=== PATIENT | male | born 1995 | race Caucasian/White ===

== ENCOUNTER 2018-07-08 01:46 | Emergency (ER) | payer OTHER ==
[~2018-07-08] VITALS: Wt 97.1 kg
[~2018-07-08 01:46] MED LIST: ACET500C5 PO; GUAI5SYR2 PO; IBUP-1561 PO
[2018-07-08] MEDS ORDERED: IBUPROFEN 800 MG TAB PO ONE (05:00)
[2018-07-08] MEDS ORDERED: NAPR-985 PO (06:00)
[2018-07-08 06:16] VITALS: BP 118/67; PULSE 61; RESP 18
--- NOTE | 2018-07-13 08:52 | ERD ---
ER Documentation Chief Complaint Chief Complaint L ANKLE PAIN S/P ROLLING ANKLE HPI 22-year-old male presenting with left ankle pain. He has some mild numbness and he twisted his ankle earlier today. Has not taken medications for symptoms. Pain is worse with ambulation. Denies any other medical problems. NKDA. Surgical history is appendectomy. Social history denies ROS All systems reviewed and are negative except as per history of present illness. Medications Home Meds Active Scripts Naproxen* (Naprosyn*) 500 Mg Tablet, 500 MG PO BID PRN for PAIN AND/OR INFLAMMATION, #30 TAB Prov:TOM VANN PA-C 07/08/18 Guaifenesin-Dextromethorphan* (Robitussin* DM) 100MG/10MG/5ML Syrup, 5 ML PO Q6H PRN for COUGH for 6 Days, #120 ML 0 Refills Prov:BISHOP NEWTON PA-C 10/02/15 Ibuprofen* (Motrin*) 400 Mg Tab, 400 MG PO Q6 for 7 Days, #30 TAB 0 Refills Prov:BISHOP NEWTON PA-C 10/02/15 Acetaminophen* (Tylophen*) 500 Mg Capsule, 1 CAP PO Q6H PRN for PAIN AND OR ELEVATED TEMP for 7 Days, #30 CAP 0 Refills Prov:BISHOP NEWTON PA-C 10/02/15 Allergies Allergies: Coded Allergies: No Known Allergy (Verified Allergy, 12/04/10) PMhx/Soc History of Surgery: No Hx Miscellaneous Medical Probl: No Hx Alcohol Use: No Hx Substance Use: No Hx Tobacco Use: No Smoking Status: Never smoker FmHx Family History: No diabetes, No coronary disease, No other Physical Exam Physical Exam GENERAL: The patient is well-appearing, well-nourished, in no acute distress CHEST: Clear to auscultation bilaterally. There are no rales, wheezes or rhonchi. HEART: Regular rate and rhythm. No murmurs, clicks, rubs or gallops. EXTREMITIES: Tender to palpation over the lateral malleolus with no obvious deformity. NEUROLOGIC: Alert and oriented. Cranial nerves II through XII intact. Motor strength in all 4 extremities with 5 out of 5 strength. Sensation grossly intact. Normal speech and gait. SKIN: Contusion noted to the lower ankle. Mild swelling. Results 24 hrs Current Medications Medications Dose Sig/Christy Start Time Status Last (Trade) Ordered Route PRN Stop Time Admin Dose Reason Admin Ibuprofen 800 mg ONCE ONCE 07/08/18 DC 07/08/18 (Motrin) PO 05:00 04:38 07/08/18 05:01 Procedures/MDM DIAGNOSTIC IMAGING REPORT Patient: LEATHA PENA : 1995 Age: 22 Sex: M MR #: [id number] DOS: 07/08/18 0434 Ordering MD: NANCY VANN PA-C Location: [facility] Room/Bed: PROCEDURE: Left ankle series CLINICAL INDICATION: Pain TECHNIQUE: AP, lateral and oblique images left ankle were obtained COMPARISON: Left ankle series 04/15/2014 FINDINGS: Severe soft tissue swelling along the lateral left ankle. Slight bony deformity involving the medial malleolus likely due to old trauma. No acute fracture or dislocation. No focal bony blastic or lytic lesions. Small bony density along the anterior distal left talus again consistent with old trauma. Soft tissues otherwise unremarkable. IMPRESSION: 1. No acute fracture dislocation. 2. Severe soft tissue swelling along the lateral left ankle. ER Course: Phu wrap and crutches given in ED. MDM: 22-year-old male presenting with ankle pain. I have low suspicion for acute fracture dislocation. Patient's findings are consistent with a sprain. Patient is discharged with strict ER precautions and supportive medications. Patient is recommended to follow-up with primary care. Patient is told symptoms change or worsen to return immediately to the ER. All questions answered at discharge Departure Diagnosis: Primary Impression: Ankle injury Condition: Stable Patient Instructions: Treating Ankle Sprains Referrals: [facility] Hours: Mon-Fri 9:00 AM - 5:00 PM Additional Instructions: FOLLOW UP WITH YOUR PRIMARY CARE PHYSICIAN TOMORROW.Return to this facility if you are not improving as expected. TOM VANN PA-C Jul 13, 2018 08:52
== END 2018-07-08 06:26 | disposition home or self-care (01) ==
LOC: FTE 01:46
DX: S90.02XA Contusion of left ankle, initial encounter (principal); X50.1XXA Overexertion from prolonged static or awkward postures, initial encounter; Y92.9 Unspecified place or not applicable
CPT/HCPCS: 73610; Z7502; Z7610